=== PATIENT | female | born 1990 | race Caucasian/White ===

== ENCOUNTER 2020-05-27 21:45 | Emergency (ER) | payer OTHER ==
[~2020-05-27] VITALS: Ht 162.6 cm; Wt 72.6 kg
[2020-05-27] MEDS ORDERED: ZOLOFT100 MG PO (22:07)
[2020-05-28] MEDS ORDERED: MACROBID 100 M100 MG PO (00:07)
[2020-05-28] MEDS ORDERED: ZOFRAN4 MG PO (00:10)
== END 2020-05-28 00:24 | disposition home or self-care (01) ==
LOC: ED 21:45
DX: K52.9 Noninfective gastroenteritis and colitis, unspecified (principal); N39.0 Urinary tract infection, site not specified; J45.909 Unspecified asthma, uncomplicated; F17.200 Nicotine dependence, unspecified, uncomplicated; Z88.2 Allergy status to sulfonamides; Z79.899 Other long term (current) drug therapy
CPT/HCPCS: 80053; 81001; 83690; 84703; 85025; 96374; 99284-25; J2405

== ENCOUNTER 2020-05-29 21:02 | Emergency (ER) | payer OTHER ==
[~2020-05-29] VITALS: Ht 162.6 cm; Wt 68.9 kg
[~2020-05-29 21:02] MED LIST: MACROBID 100 M100 MG PO; ZOFRAN4 MG PO; ZOLOFT100 MG PO
--- OUTSIDE RECORDS SUMMARY | 2020-05-29 21:06 | XMS ---
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 Papi has no Care Guidelines for this patient. Maci VISIT COUNT (12 MO.) 1 [facility] 2 [facility] [facility] TOTAL 3 NOTE: Visits indicate total known visits. ED/C VISIT TRACKING (12 MO.) 05/29/2020 21:03 [facility] [place] TYPE: Emergency COMPLAINT: - [facility] COMPLAINT: - ABDOMINAL PAIN 09/25/2019 18:56 [facility] [place] TYPE: Emergency DIAGNOSES: - Acute upper respiratory infection, unspecified - Cough INPATIENT VISIT TRACKING (12 MO.) No inpatient visits to display in this time frame [email or web address]
== END 2020-05-29 22:11 | disposition home or self-care (01) ==
LOC: ED 21:02
DX: K52.9 Noninfective gastroenteritis and colitis, unspecified (principal); J45.909 Unspecified asthma, uncomplicated; F17.200 Nicotine dependence, unspecified, uncomplicated; Z88.2 Allergy status to sulfonamides; Z79.899 Other long term (current) drug therapy
CPT/HCPCS: 80053; 81001; 83690; 84703; 85025; 96374; 99284-25; J1885

== ENCOUNTER 2020-06-08 20:34 | Emergency (ER) | payer OTHER ==
[~2020-06-08] VITALS: Ht 162.6 cm; Wt 67.6 kg
--- OUTSIDE RECORDS SUMMARY | 2020-06-08 20:36 | XMS ---
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 EKishan VISIT COUNT (12 MO.) 1 [place] [facility] [address] [place] [address] TOTAL 4 NOTE: Visits indicate total known visits. ED/UCC VISIT TRACKING (12 MO.) 06/08/2020 20:35 [facility] [place] TYPE: Emergency COMPLAINT: - ABD PAIN 05/29/2020 21:03 [facility] [place] TYPE: Emergency COMPLAINT: - ABDOM PAIN DIAGNOSES: - Unspecified asthma, uncomplicated - Other retirement (current) drug therapy - Allergy status to sulfonamides - Noninfective gastroenteritis and colitis, unspecified - Nicotine dependence, unspecified, uncomplicated - Generalized abdominal pain 05/27/2020 21:46 [facility] [place] TYPE: Emergency COMPLAINT: - ABDOMINAL PAIN DIAGNOSES: - Urinary tract infection, site not specified - Other retirement (current) drug therapy - Allergy status to sulfonamides - Noninfective gastroenteritis and colitis, unspecified - Unspecified asthma, uncomplicated - Nicotine dependence, unspecified, uncomplicated - Lower abdominal pain, unspecified 09/25/2019 18:56 [facility] [place] TYPE: Emergency DIAGNOSES: - Acute upper respiratory infection, unspecified - Cough INPATIENT VISIT TRACKING (12 MO.) No inpatient visits to display in this time frame [email or web address]
[2020-06-08] MEDS ORDERED: PROTONIX40 MG PO (22:43)
== END 2020-06-08 23:00 | disposition home or self-care (01) ==
LOC: ED 20:34
DX: R10.13 Epigastric pain (principal); J45.909 Unspecified asthma, uncomplicated; F17.200 Nicotine dependence, unspecified, uncomplicated; Z79.899 Other long term (current) drug therapy
CPT/HCPCS: 80053; 81001; 83690; 84703; 85025; 99284

== ENCOUNTER 2020-07-21 21:16 | Emergency (ER) | payer OTHER ==
[~2020-07-21] VITALS: Ht 162.6 cm; Wt 71.9 kg
[~2020-07-21 21:16] MED LIST changes: +PROTONIX40 MG PO
== END 2020-07-21 22:36 | disposition home or self-care (01) ==
LOC: ED 21:16
DX: S06.0X0A Concussion without loss of consciousness, initial encounter (principal); W22.8XXA Striking against or struck by other objects, initial encounter; J45.909 Unspecified asthma, uncomplicated; F17.200 Nicotine dependence, unspecified, uncomplicated; Z88.2 Allergy status to sulfonamides; Z79.899 Other long term (current) drug therapy
CPT/HCPCS: 70450; 99283-25

== ENCOUNTER 2020-09-15 03:45 | Emergency (ER) | payer OTHER ==
[~2020-09-15] VITALS: Ht 162.6 cm; Wt 70.3 kg
[2020-09-15] MEDS ORDERED: SPRINTEC1 EACH PO (06:22)
== END 2020-09-15 06:36 | disposition home or self-care (01) ==
LOC: ED 03:45
DX: R10.31 Right lower quadrant pain (principal); J45.909 Unspecified asthma, uncomplicated; Z88.2 Allergy status to sulfonamides; Z79.899 Other long term (current) drug therapy
CPT/HCPCS: 74177; 96375; 99284-25; J1170; J2405; J7030; Q9967